=== PATIENT | female | born 1955 | race Caucasian/White ===

== ENCOUNTER → 2016-12-22 | Outpatient (CLI) | payer BC, SELFPAY | LOC: US 09:43 | DX: B19.10 Unspecified viral hepatitis B without hepatic coma (principal); K76.0 Fatty (change of) liver, not elsewhere classified | CPT/HCPCS: 76705 ==

== ENCOUNTER → 2017-06-22 | Outpatient (CLI) | payer BC | LOC: RAD 10:19 | DX: M54.5 Low back pain (principal); M25.562 Pain in left knee; M25.561 Pain in right knee; M19.072 Primary osteoarthritis, left ankle and foot; M25.761 Osteophyte, right knee; M48.02 Spinal stenosis, cervical region; M99.31 Osseous stenosis of neural canal of cervical region; M46.02 Spinal enthesopathy, cervical region; M46.04 Spinal enthesopathy, thoracic region; M48.06 Spinal stenosis, lumbar region | CPT/HCPCS: 72050; 72072; 72110; 73564; 73610 ==